=== PATIENT | male | born 1995 | race Caucasian/White ===

== ENCOUNTER 2019-08-26 17:41 | Emergency (ER) | payer BC ==
[2019-08-26] MEDS ORDERED: Diphtheria,Pertussis(Acell),Tetanus Vaccine 0.5 ML SDV IM ONE (18:12)
[2019-08-26] MEDS ORDERED: Bacitracin Oint 1 GM U/D Packet TOP ONE (18:12)
--- NOTE | 2019-08-26 18:18 | EDM.PDOC ---
ED HPI GENERAL MEDICAL PROBLEM - General Chief Complaint: Laceration Stated Complaint: CUT ON L INDEX FINGER Time Seen by Provider: 08/26/19 18:00 Source of Information: Reports: Patient History Limitations: Reports: No Limitations - History of Present Illness INITIAL COMMENTS - FREE TEXT/NARRATIVE: 24-year-old male who sustained a laceration on the radial aspect of his distal index finger of the left hand. It is only 1 cm long, on the side of the pulp distal to the PIP joint. It is currently not bleeding, but it bled for "over 20 minutes" so he thought he should have it checked. No other injury. He is due for tetanus booster. Onset: Sudden Duration: Hour(s): (Within the last hour) Location: Reports: Upper Extremity, Left Left Finger-Index Pain Score (Numeric/FACES): 1 - Related Data Allergies Allergy/AdvReac Type Severity Reaction Status Date / Time No Known Allergies Allergy Verified 08/26/19 17:59 Home Meds: Home Meds FLUoxetine HCl [Prozac] 10 mg PO DAILY 08/26/19 [History] Past Medical History Other Respiratory History: "mild emphysema" Musculoskeletal History: Reports: Fracture Psychiatric History: Reports: Depression - Infectious Disease History Infectious Disease History: Reports: Chicken Pox - Past Surgical History HEENT Surgical History: Reports: Oral Surgery Other HEENT Surgeries/Procedures: nose surgery for sinus Other Cardiovascular Surgeries/Procedures: blood clot in thumb Social & Family History - Tobacco Use Smoking Status *Q: Former Smoker Years of Tobacco use: 8 Used Tobacco, but Quit: Yes Month/Year Tobacco Last Used: 2015 - Caffeine Use Caffeine Use: Reports: Energy Drinks - Recreational Drug Use Recreational Drug Use: Yes Recreational Drug Type: Reports: Marijuana/Hashish ED ROS GENERAL - Review of Systems Review Of Systems: See Below Constitutional: Denies: Fever, Chills Respiratory: Denies: Shortness of Breath Cardiovascular: Denies: Chest Pain GI/Abdominal: Denies: Nausea, Vomiting ED EXAM, SKIN/RASH Exam: See Below Exam Limited By: No Limitations General Appearance: Alert, No Apparent Distress Respiratory/Chest: No Respiratory Distress Extremities: Other (Exam is otherwise limited to the left hand. Patient has a 1 cm laceration on the lateral aspect of the distal index finger distal to the PIP joint. Edges are together, no active bleeding, no repair needed) Neurological: Alert, Oriented Psychiatric: Normal Affect, Normal Mood Course - Vital Signs Last Recorded V/S: Last Vital Signs Temp 98.0 F 08/26/19 17:56 Pulse 56 L 08/26/19 17:56 Resp 16 08/26/19 17:56 BP 139/58 L 08/26/19 17:56 Pulse Ox 97 08/26/19 17:56 - Orders/Labs/Meds Orders: Active Orders 24 hr Category Date Time Status Vaccines to be Administered [RC] PER UNIT ROUTINE Care 08/26/19 18:12 Active Meds: Medications Discontinued Medications Generic Name Dose Route Start Last Admin Trade Name Eliezerq PRN Reason Stop Dose Admin Bacitracin 1 dose 08/26/19 18:12 08/26/19 18:19 Bacitracin Oint 1 Gm TOP 08/26/19 18:13 1 dose ONETIME ONE Administration Diphtheria/Tetanus/Acell Pertussis 0.5 ml 08/26/19 18:12 08/26/19 18:18 Adacel IM 08/26/19 18:13 0.5 ml .ONCE ONE Administration - Re-Assessments/Exams Free Text/Narrative Re-Assessment/Exam: 08/26/19 18:17 Topical bacitracin and a Band-Aid was applied, patient was given a Tdap booster. He will keep the wound covered and clean while healing. Departure - Departure Time of Disposition: 18:24 Disposition: Home, Self-Care 01 Clinical Impression: Laceration of index finger Qualifiers: Encounter type: initial encounter Damage to nail status: without damage Foreign body presence: without foreign body Laterality: left Qualified Code(s): S61.211A - Laceration without foreign body of left index finger without damage to nail, initial encounter - Discharge Information Instructions: VIS, DTaP (Diphtheria, Tetanus, Pertussis) Vaccine - CDC (2017), Laceration Care, Adult, [id number] Referrals: PCP,None [Primary Care Provider] - Forms: ED Department Discharge Care Plan Goals: Keep wound covered and clean while healing. Recheck if concerns of infection or not healing satisfactorily. Sepsis Event Note - Evaluation Sepsis Screening Result: No Definite Risk - Focused Exam Vital Signs: Vital Signs Temp Pulse Resp BP Pulse Ox 08/26/19 17:56 98.0 F 56 L 16 139/58 L 97 08/26/19 17:54 98.0 F 56 L 16 139/58 L 97 Date Exam was Performed: 08/26/19 Time Exam was Performed: 18:49 - My Orders Last 24 Hours: My Active Orders 08/26/19 18:12 Vaccines to be Administered [RC] PER UNIT ROUTINE - Assessment/Plan Last 24 Hours: My Active Orders 08/26/19 18:12 Vaccines to be Administered [RC] PER UNIT ROUTINE
== END 2019-08-26 18:24 | disposition home or self-care (01) ==
LOC: JP.ED 17:41
DX: S61.211A Laceration without foreign body of left index finger without damage to nail, initial encounter (principal); F32.9 Major depressive disorder, single episode, unspecified; Z79.899 Other long term (current) drug therapy; Z87.891 Personal history of nicotine dependence; Z23 Encounter for immunization; W26.9XXA Contact with unspecified sharp object(s), initial encounter
CPT/HCPCS: 90471; 90715; 99282